=== PATIENT | female | born 1980 | race Two or more races ===

== ENCOUNTER 2021-10-01 15:00 | Emergency (ER) | payer MEDICAID, OTHER ==
[~2021-10-01] VITALS: Ht 157.5 cm; Wt 66.2 kg
[2021-10-01 15:06] VITALS: BP 126/69
== END 2021-10-01 19:15 | disposition left against medical advice (07) ==
LOC: ER 15:02
DX: Z48.01 Encounter for change or removal of surgical wound dressing (principal); Z53.21 Procedure and treatment not carried out due to patient leaving prior to being seen by health care provider